=== PATIENT | female | born 1960 | race Caucasian/White ===

== ENCOUNTER 2020-05-28 09:15 | Outpatient (REF) | payer MEDICARE, MEDICAID, SELFPAY ==
[2020-05-30 20:51] LABS: TS Negative Control Passed; TS Panel A 0; TS Panel B 0; TS Positive Control Passed; TSpotTB Negative (SeeBelow)
== END 2020-05-28 09:16 | disposition home or self-care (01) ==
LOC: HO.HMGCLDS 09:15
PROVIDERS: PCP Internal Medicine; Visit Provider Internal Medicine
DX: Z11.1 Encounter for screening for respiratory tuberculosis (principal)
CPT/HCPCS: 86481

== ENCOUNTER 2020-08-23 07:00 | Outpatient (REF) | payer MEDICARE, MEDICAID, SELFPAY ==
[2020-08-23 11:20] LABS: Hematocrit 42.8 % (37-47); Hemoglobin 14.5 g/dl (12.0-16.0)
[2020-08-23 11:57] LABS: Alanine Aminotransferase 30 U/L (0-31); Albumin Level 4.5 g/dL (3.5-5.0); Alkaline Phosphatase 66 U/L (39-117); Anion Gap 13 (12-20); Aspartate Amino Transferase 13 U/L (5-31); Bilirubin Direct 0.2 mg/dL (0.0-0.5); Bilirubin Total 0.6 mg/dL (0.0-1.0); Blood Urea Nitrogen 13 mg/dL (9-16); Calcium 9.2 mg/dL (8.4-10.2); Carbon Dioxide 27 mmol/L (22-29); Chloride 104 mmol/L (96-108); Cholesterol 180 mg/dL; Estimated Glomerular Filt Rate > 60; Glucose Fasting 121 mg/dL (60-99); HDL Cholesterol 39 mg/dL; LDL Cholesterol Calculated 98 mg/dl; Potassium 4.2 mmol/L (3.3-5.1); Sodium 140 mmol/L (135-145); Total Protein 6.5 g/dL (6.5-8.0); Triglycerides 217 mg/dL
[2020-08-26 22:07] LABS: Vitamin D 25-OH, D2 <4 ng/mL; Vitamin D 25-OH, D3 27 ng/mL; Vitamin D 25-OH, Total 27 ng/mL (30-100)
== END 2020-08-23 07:01 | disposition home or self-care (01) ==
LOC: HO.HMGCLDS 07:00
PROVIDERS: PCP Internal Medicine; Visit Provider Internal Medicine
DX: Z00.01 Encounter for general adult medical examination with abnormal findings (principal); E55.9 Vitamin D deficiency, unspecified; G44.89 Other headache syndrome
CPT/HCPCS: 36415; 80048; 80061; 80076; 82306; 85014; 85018

== ENCOUNTER 2021-05-12 11:45 | Outpatient (REF) | payer OTHER, SELFPAY ==
--- NOTE | ~2021-05-12 | MM_ITS ---
EXAMINATION: MM SCREENING DIGITAL BREAST TOMOSYNTHESIS, BILATERAL CLINICAL INFORMATION: Screening. Asymptomatic. The lifetime risk of breast cancer based on the Tyrer-Cuzick Model is 10%. COMPARISON: Mammography: 03/26/2020, 10/03/2018, 08/12/2017 TECHNIQUE: Digital breast tomosynthesis is performed in both the craniocaudal and mediolateral oblique views along with computer-aided detection (CAD). Synthesized 2D images are generated from the tomosynthesis. FINDINGS: There are scattered areas of fibroglandular density (ACR BI-RADS breast composition Category b). There are no significant masses, abnormal calcifications, or other abnormalities. Parenchymal pattern is similar to prior studies. No developing density. The skin contours are smooth. No significant changes. MM/MM tomosynthesis screening BI IMPRESSION: No mammographic evidence of malignancy. ASSESSMENT: BI-RADS 1: Negative RECOMMENDATION: Routine annual mammography screening. This patient's information was entered into a reminder system with a target due date for their next mammogram.
== END 2021-05-12 11:46 | disposition home or self-care (01) ==
LOC: HO.MAMMO 11:45
PROVIDERS: Visit Provider Internal Medicine
DX: Z12.31 Encounter for screening mammogram for malignant neoplasm of breast (principal)
CPT/HCPCS: 77063; 77067

== ENCOUNTER 2021-07-11 09:39 | Outpatient (REF) | payer OTHER, SELFPAY ==
[2021-07-11 10:05] LABS: Binax Internal Control QC Valid; Binax Now Covid-19 Ag Negative (Negative); Binax Performed by: HO.BONILM
== END 2021-07-11 09:40 | disposition home or self-care (01) ==
LOC: HO.HMGCLDS 09:39
PROVIDERS: PCP Internal Medicine; Visit Provider Internal Medicine
DX: Z20.822 Contact with and (suspected) exposure to COVID-19 (principal); J06.9 Acute upper respiratory infection, unspecified
CPT/HCPCS: 36415

== ENCOUNTER 2021-08-22 09:26 | Outpatient (REF) | payer OTHER, SELFPAY ==
[2021-08-22 11:36] LABS: MANUAL DIFF FLAG NO
[2021-08-22 11:47] LABS: Basophils Percent Auto 0.4 % (0-2); Eosinophils Absolute Auto 0.1 X10*3/uL (0.0-0.4); Eosinophils Percent Auto 1.3 % (0-4); Hemoglobin 14.8 g/dl (12.0-16.0); Imm Gran Abs Auto 0.02 X10*3/uL (0.00-0.03); Imm Gran Pct Auto 0.3 % (0.0-0.4); Lymphocytes Absolute Auto 1.8 X10*3/uL (1.2-4.9); Mean Corpuscular HGB Conc 34.4 g/dl (31.0-35.0); Mean Corpuscular Hemoglobin 30.6 pg (27.0-33.0); Monocytes Absolute Auto 0.7 X10*3/uL (0.1-1.2); Monocytes Percent Auto 10.1 % (2-11); Neutrophils Absolute Auto 4.4 x10*3/uL (2.0-8.3); Neutrophils Percent Auto 61.9 % (45-73); Platelet Count 367 X10*3/uL (160-400); Red Blood Count 4.83 X10*6/uL (4.20-5.50)
[2021-08-22 12:13] LABS: Alanine Aminotransferase 34 U/L (0-31); Albumin Level 4.5 g/dL (3.5-5.0); Alkaline Phosphatase 79 U/L (39-117); Anion Gap 11 (12-20); Aspartate Amino Transferase 16 U/L (5-31); Bilirubin Total 0.3 mg/dL (0.0-1.0); Blood Urea Nitrogen 10 mg/dL (9-16); Calcium 9.7 mg/dL (8.4-10.2); Carbon Dioxide 27 mmol/L (22-29); Chloride 105 mmol/L (96-108); Estimated Glomerular Filt Rate > 60; Glucose Random 107 mg/dL (60-115); Potassium 4.4 mmol/L (3.3-5.1); Sodium 139 mmol/L (135-145); Total Protein 6.7 g/dL (6.5-8.0)
[2021-08-22 12:21] LABS: Estimated Average Glucose 120 mg/dL; Hemoglobin A1c % 5.8 %
[2021-08-23 17:06] LABS: LDL Cholesterol Direct 90 mg/dL (<100)
== END 2021-08-22 09:27 | disposition home or self-care (01) ==
LOC: HO.HMGCLDS 09:26
PROVIDERS: Visit Provider Internal Medicine
DX: Z00.01 Encounter for general adult medical examination with abnormal findings (principal); R73.01 Impaired fasting glucose; E66.9 Obesity, unspecified
CPT/HCPCS: 36415; 80053; 83036; 83721; 84443; 85025

== ENCOUNTER 2021-12-19 07:20 | Outpatient (REF) | payer OTHER, SELFPAY ==
--- NOTE | ~2021-12-19 | XR_ITS ---
EXAMINATION: XR SHOULDER, LEFT CLINICAL INFORMATION: Pain. COMPARISON: None TECHNIQUE: AP external rotation, Grashey, scapular Y, and axillary views of the left shoulder. FINDINGS: There is mild loss of before meals and glenohumeral joint space without periarticular spurring. No visible acute fracture or dislocation seen. The soft tissues are normal. XR/XR shoulder LT min 2V IMPRESSION: Mild degenerative changes left AC and glenohumeral joint. No visible acute fracture or dislocation seen. There is no lytic process.
== END 2021-12-19 07:21 | disposition home or self-care (01) ==
LOC: HO.HOSX 07:20
PROVIDERS: Visit Provider Physician Assistant
DX: M75.102 Unspecified rotator cuff tear or rupture of left shoulder, not specified as traumatic (principal)
CPT/HCPCS: 73030; 99202

== ENCOUNTER → 2022-01-08 13:55 | Outpatient (BNVA) | payer OTHER, SELFPAY | PROVIDERS: PCP Internal Medicine; Visit Provider Surgery Vascular Surgery | DX: I83.12 Varicose veins of left lower extremity with inflammation (principal) | CPT/HCPCS: 99202 ==

== ENCOUNTER 2022-03-12 12:40 | Outpatient (REF) | payer OTHER, SELFPAY ==
--- NOTE | ~2022-03-12 | US_ITS ---
EXAMINATION: US LOWER EXTREMITY VENOUS (REFLUX EXAM), BILATERAL CLINICAL INDICATION: This is a 62-year-old female with venous insufficiency and varicose veins. COMPARISON: None. TECHNIQUE: Color flow triplex imaging and compression Doppler was performed to evaluate both the deep and the superficial systems bilaterally. To evaluate the superficial system, the examination was performed in the upright position. Color-flow Doppler ultrasound and compression ultrasound were utilized. In addition, maneuvers were utilized to demonstrate reflux. FINDINGS: 1. DEEP VENOUS ULTRASOUND OF THE RIGHT LOWER EXTREMITY: Common Femoral Vein: Compressible, normal respiratory variation and augmented flow. Femoral vein: Compressible, normal color flow and augmentation. Popliteal Vein: Compressible, normal augmentation. Deep Reflux: There is no evidence of reflux in the deep system in either the common femoral vein or the popliteal vein. There is no evidence of a Loomis's cyst. 2. SUPERFICIAL ULTRASOUND WITH DOPPLER OF RIGHT LOWER EXTREMITY: GREAT SAPHENOUS VEIN: Saphenofemoral Junction: 0.9 cm. There is no reflux. Proximal thigh: 0.5 cm. The reflux time is 972 ms. Mid Thigh: 0.5 cm. There is no reflux at this level and below. Above Knee: 0.4 cm Below Knee: 0.3 cm Mid Calf: 0.3 cm Ankle: 0.3 cm GSV REFLUX: There is isolated reflux in the proximal thigh but not at the junction. DUPLICATED GREAT SAPHENOUS VEIN: There is a 0.3 cm duplicated lateral great saphenous vein without reflux. SMALL SAPHENOUS VEIN: Proximal: 0.3 cm Distal: 0.3 cm SSV REFLUX: No evidence of reflux. VEIN OF GIACOMINI: None Imaged. PERFORATORS: There are 0.4 cm distal calf perforators without reflux. VARICOSITIES: There are 0.3 cm varicose veins at the knee without reflux. 3. DEEP VENOUS ULTRASOUND OF THE LEFT LOWER EXTREMITY: Common Femoral Vein: Compressible, normal respiratory variation and augmented flow. Femoral Vein: Compressible, normal color flow and augmentation. Popliteal Vein: Compressible, normal augmentation. Deep Reflux: There is no evidence of reflux in the deep system in either the common femoral vein or the popliteal vein. There is duplication in the left deep venous system. There is no evidence of a Loomis's cyst. 4. SUPERFICIAL ULTRASOUND WITH DOPPLER OF LEFT LOWER EXTREMITY: GREAT SAPHENOUS VEIN: Saphenofemoral Junction: 1.1 cm. There is no reflux. Mid Thigh: 0.6 cm Above Knee: 0.4 cm Below Knee: 0.3 cm. There is no reflux at this level and above. Mid Calf: 0.3 cm. The reflux time is 1156 ms. Ankle: 0.3 cm. There is no reflux. GSV REFLUX: There is isolated reflux in the mid calf. DUPLICATED GREAT SAPHENOUS VEIN: None SMALL SAPHENOUS VEIN: Proximal: 0.2 cm Distal: 0.1 cm SSV REFLUX: No evidence of reflux. VEIN OF GIACOMINI: None Imaged. PERFORATORS: There are 0.2 cm mid calf perforators without reflux. VARICOSITIES: There are 0.3 cm distal thigh varicose veins without reflux. There are 0.3 cm proximal calf varicose veins without reflux. US/US venous duplex LE BI IMPRESSION: 1. There is a patent right great saphenous vein without reflux at the saphenofemoral junction. However, reflux is seen in the proximal thigh. No reflux is seen from the mid thigh down. 2. There is a patent right small saphenous vein without evidence of reflux. 3. There are 0.3 cm varicose veins at the right knee without reflux. 4. There is a patent left great saphenous vein with isolated reflux in the mid calf but not seen at the saphenofemoral junction. 5. There is a patent left small saphenous vein without evidence of reflux. 6. There are 0.3 cm varicose veins in the distal thigh and proximal calf on the left without reflux.
== END 2022-03-12 12:41 | disposition home or self-care (01) ==
LOC: HO.US 12:40
PROVIDERS: Visit Provider Surgery Vascular Surgery
DX: I83.12 Varicose veins of left lower extremity with inflammation (principal)
CPT/HCPCS: 93970

== ENCOUNTER → 2022-03-17 13:41 | Outpatient (BNVA) | payer OTHER, SELFPAY | PROVIDERS: PCP Internal Medicine; Visit Provider Surgery Vascular Surgery | DX: M79.89 Other specified soft tissue disorders (principal) | CPT/HCPCS: 99212 ==

== ENCOUNTER 2022-07-01 13:25 | Outpatient (REF) | payer OTHER, SELFPAY ==
--- NOTE | ~2022-07-01 | XR_ITS ---
EXAMINATION: XR LUMBOSACRAL SPINE CLINICAL INFORMATION: Radiculopathy COMPARISON: Previous x-ray January 2018 TECHNIQUE: Three views of the lumbosacral spine. FINDINGS: There is mild curvature of the lower lumbar spine to the left. Bone alignment is otherwise normal. No fracture or dislocation. Stable postsurgical changes at L3-L4. Degenerative spondylosis and degenerative disc disease at L1-L2 and L2-L3. Degenerative disc disease at L5-S1. Lower lumbar spine facet arthritis. XR/XR lumbar spine 2-3V IMPRESSION: Stable postsurgical changes at L3-L4. Mild scoliosis and degenerative changes.
== END 2022-07-01 13:26 | disposition home or self-care (01) ==
LOC: HO.HMGCX 13:25
PROVIDERS: PCP Internal Medicine; Visit Provider Nurse Practitioner Family
DX: M54.16 Radiculopathy, lumbar region (principal)
CPT/HCPCS: 72100

== ENCOUNTER → 2022-08-17 10:27 | Outpatient (BNVA) | payer OTHER, SELFPAY | PROVIDERS: PCP Internal Medicine; Visit Provider Internal Medicine | DX: M54.16 Radiculopathy, lumbar region (principal); M96.1 Postlaminectomy syndrome, not elsewhere classified; Z79.899 Other long term (current) drug therapy | CPT/HCPCS: 99202 ==

== ENCOUNTER 2022-09-10 15:08 | Outpatient (REF) | payer OTHER, SELFPAY ==
--- NOTE | ~2022-09-10 | MR_ITS ---
EXAMINATION: MR LUMBAR SPINE WITHOUT CONTRAST CLINICAL INFORMATION: Post laminectomy syndrome, not elsewhere classified. COMPARISON: None TECHNIQUE: MRI of the lumbar spine was obtained using routine sequences without contrast. FINDINGS: There are postoperative findings related to instrumented fusion at L3-L4 with interbody device in place and screws within the bilateral pedicles. There is mild multilevel disc height loss at the nonsurgical levels. Scattered endplate Schmorl's nodes are also noted. There is mild endplate edema inferiorly at L1 and at the opposing endplates of L5-S1. There is a mild degree of dextroscoliotic curvature. The extraspinal soft tissues are within normal limits. SPINAL LEVELS: L1-L2: Mild disc bulging. No spinal canal stenosis. Mild right neural foraminal stenosis. L2-L3: Disc bulging asymmetric to the left with ligamentum flavum infolding moderate facet arthropathy. Left and right foraminal protrusions resulting in mild to moderate bilateral neural foraminal stenosis with abutment of the extraforaminal right L2 nerve root. Mild spinal canal stenosis. L3-L4: Interbody fusion. No spinal canal or neural foraminal stenosis. L4-L5: Disc bulging with ligamentum flavum infolding, epidural lipomatosis, moderate facet arthropathy and small central protrusion resulting in moderate to severe spinal canal stenosis and bilateral subarticular stenosis compression of the traversing right more than left L5 nerve root. Moderate to severe bilateral neural foraminal stenosis with compression of both exiting L4 nerve roots. L5-S1: Disc bulging with moderate facet arthropathy. Far right lateral osteophytic ridging compresses the extraforaminal right L5 nerve root. Moderate right neural foraminal stenosis. No spinal canal stenosis. MR/MR lumbar spine wo con IMPRESSION: 1. Postoperative findings related to instrumented fusion at L3-L4. 2. At L2-L3 there is mild to moderate bilateral neural foraminal stenosis with abutment of the extraforaminal right L2 nerve root. 3. At L4-L5 there is moderate to severe spinal canal stenosis, bilateral subarticular stenosis, and moderate to severe bilateral neural foraminal stenosis with compression of both exiting L4 nerve roots. 4. At L5-S1 there is far right lateral osteophytic ridging causing compression of the extraforaminal right L5 nerve root.
== END 2022-09-10 15:09 | disposition home or self-care (01) ==
LOC: HO.MRI 15:08
PROVIDERS: PCP Internal Medicine; Visit Provider Internal Medicine
DX: M54.16 Radiculopathy, lumbar region (principal); M96.1 Postlaminectomy syndrome, not elsewhere classified
CPT/HCPCS: 72148

== ENCOUNTER 2023-05-15 12:10 | Outpatient (AMB) | payer OTHER, SELFPAY ==
--- NOTE | 2023-05-15 13:19 | MHC.OFFWIV ---
Intake Vital Signs 05/15/23 13:26 Height 5 ft 7 in Weight 217 lb BMI 34.0 BP 98/62 Blood Pressure Location Rt brachial Position Sitting Pulse 69 Pulse Source Pulse Oximeter Temp 98.1 F Temp Source Oral Pulse Oximetry (%) 98 Oxygen Delivery Method Room Air Intake Visit Reasons: Ep, congestion, cough (masked) Intake Note: Pt is here today c/o chest congestion and cough x1wk and H/A Patient Tobacco Use Status: Current someday Tobacco user Allergies animal dander Allergy (Unknown, Verified 05/15/23 13:27) SNEEZING, ITCHY No Known Drug Allergies [NO KNOWN DRUG ALLERGIES] Allergy (Unknown, Verified 05/15/23 13:) N/A SOIL Allergy (Unknown, Uncoded 05/15/23 13:) SNEEZING, ITCHY HPI HPI Comments History of Present Illness Details This is a 63-year-old female with a past medical history of seasonal allergies presenting for evaluation of sinus congestion, cough and a frontal headache that she has had for the past 1 week. 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 Patient denies having any fevers, chills, ear pain, sore throat or difficulty swallowing. Patient reports having poor sleep at night secondary to her cough. [facility] Surgical History History of back surgery History of section History of colonoscopy History of neck surgery History of ovarian cyst History of shoulder surgery History of surgery Family History Father Stomach cancer Mother Diabetes mellitus CVD (cardiovascular disease) Maternal Grandfather No problems noted. Maternal Grandmother Lung cancer Paternal Grandmother No problems noted. Paternal Grandfather No problems noted. Brother No problems noted. Brother No problems noted. Sister No problems noted. Son No problems noted. Son No problems noted. Son No problems noted. Daughter No problems noted. Social History Housing: House Alcohol intake: never Patient Tobacco Use Status: Current someday Tobacco user Years Smoked: 2 years e-Cigarette/Vaping Use: Never Used service: No Current occupational status: employed Cognitive needs: No Hearing needs: No Vision needs: No Review of Systems Const Denies chills, Reports fatigue and Denies fever(s) Eyes Reports no additional complaints ENT Reports no additional complaints and Reports sinus pressure Card Reports no additional complaints and Denies dyspnea Resp Reports cough, Denies dyspnea and Denies wheezing Skin/Breast Reports system reviewed and no additional complaints, except as documented Psych Reports no additional complaints Endo Reports fatigue Aller/Immun Reports no additional complaints and Denies wheezing Physical Exam Vital Signs: Last Vital Signs Temp 98.1 F 05/15/23 13:26 Pulse 69 05/15/23 13:26 BP 98/62 05/15/23 13:26 Pulse Ox 98 05/15/23 13:26 Oxygen Delivery Method Room Air 05/15/23 13:26 BMI result Body Mass Index 34.0 Patient is afebrile. Const General: cooperative, comfortable, no acute distress, well developed, alert and awake; No ill appearing Nutritional Appearance: overweight Orientation/consciousness: patient oriented x3 Limitations: no limitations HEENT Head: Yes normal to inspection and Yes normocephalic Ears: hearing grossly normal bilaterally, external ears normal, EAC's normal and TM abnormal bulging (no erythema) bilateral General nose exam: Normal external nose present Face and sinus: Yes normal facial exam and Yes sinuses nontender Mouth: Normal oral and palatal mucosa present Teeth and gingiva: dentition normal Throat: Yes postnasal drainage ( No erythema, edema or exudates of the posterior oropharynx) Eyes General: appearance normal, both eyes and all related structures Visual Mccormick: normal visual mccormick by confrontation Alignment and Position: alignment normal Periorbital: periorbital findings normal Eyelids: Yes eyelids normal Conjunctivae: conjunctivae normal Sclerae: sclerae normal EOM: EOMs intact bilaterally Neck Lymphatic: no lymphadenopathy noted Resp Effort & Inspection: normal respiratory effort, able to speak in complete sentences, no audible wheezes, Actively coughing, no respiratory distress and not tachypneic Auscultation: clear to auscultation bilaterally, no crackles, no rales, no rhonchi and no wheezes Cardio Rate: regular rate Rhythm: regular rhythm Skin General skin exam: no rashes or lesions noted Neuro General: patient oriented x3 Psych Appearance: grossly normal Mental Status: mental status grossly normal Insight: Good insight present (Psych) Judgement: Good judgement present (Psych) Assessment & Plan Assessment & Plan (1) URI (upper respiratory infection): Code(s): J06.9 - Acute upper respiratory infection, unspecified (2) Allergic rhinitis: Code(s): J30.9 - Allergic rhinitis, unspecified Plan: Patient will start Loratadine and Fluticasone nasal for ongoing management of her allergic rhinitis. Recommend follow-up with her PCP within 10 days if her symptoms persist. Medications: New desloratadine 5 mg PO DAILY 30 tabs 0RF fluticasone propionate 50 mcg/actuation administer into each nostril 1 spray intranasal DAILY 16 grams 1RF Coding Level of Care Code Est Pt Level 3 (49691) Diagnoses URI (upper respiratory infection) J06.9 Allergic rhinitis J30.9 Time Spent (min) 20
[2023-05-15 13:26] VITALS: BP 98/62; PULSE 69; TEMP 36.7; O2SAT 98; BMI 34.0
== END 2023-05-15 14:00 | disposition home or self-care (01) ==
PROVIDERS: PCP Internal Medicine; Visit Provider Physician Assistant
DX: J06.9 Acute upper respiratory infection, unspecified (principal); J30.9 Allergic rhinitis, unspecified
CPT/HCPCS: 99213

== ENCOUNTER 2023-08-03 13:01 | Outpatient (AMB) | payer OTHER, SELFPAY ==
[2023-08-03 13:02] VITALS: BP 134/80; PULSE 76; O2SAT 98; BMI 34.0
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
== END 2023-08-03 16:26 | disposition home or self-care (01) ==
PROVIDERS: PCP Internal Medicine; Visit Provider Internal Medicine
DX: S06.0X0A Concussion without loss of consciousness, initial encounter (principal); V89.2XXA Person injured in unspecified motor-vehicle accident, traffic, initial encounter; M54.50 Low back pain, unspecified; G44.89 Other headache syndrome; S09.90XA Unspecified injury of head, initial encounter; M54.2 Cervicalgia
CPT/HCPCS: 99214

== ENCOUNTER 2023-08-03 13:28 | Outpatient (AMB) | payer OTHER, SELFPAY ==
[2023-08-03 13:29] VITALS: BP 134/80; PULSE 76; O2SAT 98; BMI 34.0
--- NOTE | 2023-08-03 13:29 | A.OFFPC_ITS ---
Vital Signs 08/03/23 13:29 Height 5 ft 7 in Weight 217 lb BMI 34.0 BP 134/80 Blood Pressure Location Rt brachial Position Sitting Pulse 76 Pulse Source Pulse Oximeter Pulse Oximetry (%) 98 Oxygen Delivery Method Room Air Intake Visit Reasons: Allergies Allergies animal dander Allergy (Unknown, Verified 08/03/23 13:30) SNEEZING, ITCHY No Known Drug Allergies [NO KNOWN DRUG ALLERGIES] Allergy (Unknown, Verified 08/03/23 13:30) N/A SOIL Allergy (Unknown, Uncoded 05/15/23 13:27) SNEEZING, ITCHY Medication List - Last Reconciled 08/03/23 by Afshan Gutierrez MD cetirizine (Zyrtec) 10 mg PO DAILY 90 days desloratadine 5 mg PO DAILY diclofenac sodium 1% (Voltaren Arthritis Pain) 2 grams topical QID fluticasone propionate 50 mcg/actuation 1 spray intranasal DAILY Tobacco use date assessed: 08/03/23 Dental Screening Dental Screen Date: 08/03/23 Did you have a dental visit in the last 12 months?: Yes Did you have a dental problem in the last 6 months where you did not have access to dental care?: No Was dental information given to patient?: Patient has dentist HPI Allergies HPI Details Patient is 63-year-old female Patient is having recurrent sinus infections secondary to untreated allergies She is supposed to be on long-acting antihistamine, patient says that she ran out and stopped taking it. At this point her sinuses are fine but she continued to have itching in her nose and sneezing I have refilled her long-acting antihistamine for the whole year. [facility] Surgical History History of ovarian cyst History of colonoscopy History of section History of shoulder surgery History of surgery History of neck surgery History of back surgery Family History Father Stomach cancer Mother Diabetes mellitus CVD (cardiovascular disease) Maternal Grandfather No problems noted. Maternal Grandmother Lung cancer Paternal Grandmother No problems noted. Paternal Grandfather No problems noted. Brother No problems noted. Brother No problems noted. Sister No problems noted. Son No problems noted. Son No problems noted. Son No problems noted. Daughter No problems noted. Social History Housing: House Alcohol intake: never Patient Tobacco Use Status: Current someday Tobacco user Tobacco use type: Cigarette Years Smoked: 2 years e-Cigarette/Vaping Use: Never Used service: No Current occupational status: employed Cognitive needs: No Hearing needs: No Vision needs: No Questionnaire Thrive Questionnaire Date Thrive assessed: 08/14/22 GRZEGORZ-7 AMB Questionnaire GRZEGORZ-7 Date GRZEGORZ - 7 assessed: 08/14/22 Source: Developed by Drs. Damian Wilkinson, Jana Crespo, Barber Ramirez and colleagues, with an educational kameron from [employer]. Review of Systems Const Denies chills and Denies fever(s) ENT Denies epistaxis Card Denies chest pain Resp Denies chest congestion, Denies cough and Denies hemoptysis GI Denies diarrhea and Denies nausea Skin/Breast Denies rash Neuro Reports no additional complaints Psych Reports no additional complaints Endo Reports no additional complaints Physical exam (Primary Care) Vital Signs: Last Vital Signs Pulse 76 08/03/23 13:29 BP 134/80 08/03/23 13:29 Pulse Ox 98 08/03/23 13:29 Oxygen Delivery Method Room Air 08/03/23 13:29 BMI result Body Mass Index 34.0 Tobacco/Smoking Status: Tobacco use Status Tobacco use date assessed 08/03/23 08/03/23 13:30 Patient Tobacco Use Status Current someday Tobacco 08/03/23 13:30 Tobacco use type Cigarette 08/03/23 13:30 e-Cigarette/Vaping Use Never Used 08/03/23 13:30 Thrive Assessment: Date of Thrive Assessment Date Thrive assessed 08/14/22 08/03/23 13:30 Const General: cooperative, comfortable and no acute distress Orientation/consciousness: patient oriented x3 HENMT Head: Yes normocephalic Eyes General: appearance normal, both eyes and all related structures Resp Effort & Inspection: normal respiratory effort, no cough and no stridor Cardio Rhythm: regular rhythm Heart sounds: S1 normal heart sound present and S2 normal heart sound present Skin General skin exam: turgor normal Neuro General: patient oriented x3, tone normal and moves all extremities Extrem Right lower extremity: no edema Left lower extremity: no edema Assessment and Plan Assessment & Plan (1) Allergic rhinitis: Code(s): J30.9 - Allergic rhinitis, unspecified Qualifiers: Allergic rhinitis trigger: pollen Allergic rhinitis seasonality: non- seasonal Qualified Code(s): J30.1 - Allergic rhinitis due to pollen (2) Environmental allergies: Code(s): Z91.09 - Other allergy status, other than to drugs and biological substances Plan Patient is 63-year-old female Patient is having recurrent sinus infections secondary to untreated allergies She is supposed to be on long-acting antihistamine, patient says that she ran out and stopped taking it. At this point her sinuses are fine but she continued to have itching in her nose and sneezing I have refilled her long-acting antihistamine for the whole year. Medications: Refilled cetirizine (Zyrtec) 10 mg PO DAILY 90 tabs 3RF 90 days Coding Level of Care Code Est Pt Level 3 (01028) Diagnoses Non-seasonal allergic rhinitis due to pollen J30.1 Allergic rhinitis trigger: pollen Allergic rhinitis seasonality: non-seasonal Environmental allergies Z91.09
== END 2023-08-03 16:27 | disposition home or self-care (01) ==
LOC: HO.HMGC 13:28
PROVIDERS: PCP Internal Medicine; Visit Provider Internal Medicine
DX: J30.1 Allergic rhinitis due to pollen (principal); Z91.09 Other allergy status, other than to drugs and biological substances
CPT/HCPCS: 99213

== ENCOUNTER 2023-09-21 12:18 | Outpatient (AMB) | payer OTHER, SELFPAY ==
[2023-09-21 12:20] VITALS: BP 134/78; PULSE 84; O2SAT 96; BMI 34.3
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
== END 2023-09-21 14:15 | disposition home or self-care (01) ==
PROVIDERS: PCP Internal Medicine; Visit Provider Internal Medicine
DX: M54.50 Low back pain, unspecified (principal); V89.2XXD Person injured in unspecified motor-vehicle accident, traffic, subsequent encounter
CPT/HCPCS: 99213

== ENCOUNTER 2023-12-24 14:20 | Outpatient (AMB) | payer OTHER, SELFPAY ==
[2023-12-24 14:41] VITALS: BP 132/80; PULSE 95; O2SAT 87; BMI 33.9
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
== END 2023-12-24 16:28 | disposition home or self-care (01) ==
PROVIDERS: PCP Internal Medicine; Visit Provider Internal Medicine
DX: M54.50 Low back pain, unspecified (principal); M54.16 Radiculopathy, lumbar region; R20.2 Paresthesia of skin; Z04.3 Encounter for examination and observation following other accident; V89.2XXD Person injured in unspecified motor-vehicle accident, traffic, subsequent encounter
CPT/HCPCS: 99214

== ENCOUNTER 2023-12-24 15:08 | Outpatient (AMB) | payer OTHER, SELFPAY ==
--- NOTE | 2023-12-24 15:08 | MHC.PC.OV ---
Intake Visit Reasons: Follow Up Allergies animal dander Allergy (Unknown, Verified 12/24/23 14:41) SNEEZING, ITCHY No Known Drug Allergies [NO KNOWN DRUG ALLERGIES] Allergy (Unknown, Verified 12/24/23 14:41) N/A SOIL Allergy (Unknown, Uncoded 05/15/23 13:27) SNEEZING, ITCHY Medication List - Last Reconciled 12/24/23 by Afshan Gutierrez MD cetirizine (Zyrtec) 10 mg PO DAILY 90 days desloratadine 5 mg PO DAILY diclofenac sodium 1% (Voltaren Arthritis Pain) 2 grams topical QID fluticasone propionate 50 mcg/actuation 1 spray intranasal DAILY tizanidine 2 mg PO BID PRN 15 days Tobacco use date assessed: 12/24/23 Dental Screening Dental Screen Date: 12/24/23 HPI Follow Up HPI Details Patient is 63-year-old female came in today to talk about swelling of her ankle Patient says that during the summer months , her ankle swells when she is standing or sitting for prolonged periods of time In the past frusemide has helped her. Patient is requesting a refill on this medication which I have sent for her Vital signs: Height is 5 ft 7 in Weight 216 lb 4 oz BMI 33.9 Blood pressure 132/80 Pulse 95 regular [facility] Surgical History History of ovarian cyst History of colonoscopy History of section History of shoulder surgery History of surgery History of neck surgery History of back surgery Family History Father Stomach cancer Mother Diabetes mellitus CVD (cardiovascular disease) Maternal Grandfather No problems noted. Maternal Grandmother Lung cancer Paternal Grandmother No problems noted. Paternal Grandfather No problems noted. Brother No problems noted. Brother No problems noted. Sister No problems noted. Son No problems noted. Son No problems noted. Son No problems noted. Daughter No problems noted. Social History Housing: House Alcohol intake: never Patient Tobacco Use Status: Current someday Tobacco user Tobacco use type: Cigarette Years Smoked: 2 years e-Cigarette/Vaping Use: Never Used service: No Current occupational status: employed Cognitive needs: No Hearing needs: No Vision needs: No Questionnaire Thrive Questionnaire Date Thrive assessed: 08/14/22 GRZEGORZ-7 AMB Questionnaire GRZEGORZ-7 Date GRZEGORZ - 7 assessed: 08/14/22 Source: Developed by Drs. Damian Wilkinson, Jana Crespo, Barber Ramirez and colleagues, with an educational kameron from [employer]. Review of Systems Const All systems reviewed & are unremarkable except as noted in HPI and below Physical exam (Primary Care) Tobacco/Smoking Status: Tobacco use Status Tobacco use date assessed 12/24/23 12/24/23 15:08 Patient Tobacco Use Status Current someday Tobacco 12/24/23 15:08 Tobacco use type Cigarette 12/24/23 15:08 e-Cigarette/Vaping Use Never Used 12/24/23 15:08 Thrive Assessment: Date of Thrive Assessment Date Thrive assessed 08/14/22 12/24/23 15:08 Const General: no acute distress Orientation/consciousness: patient oriented x3 Eyes General: appearance normal, both eyes and all related structures Resp Effort & Inspection: normal respiratory effort and able to speak in complete sentences Auscultation: clear to auscultation bilaterally Neuro General: patient oriented x3 Extrem Other: 1+ pitting edema both ankles Psych Mental Status: mental status grossly normal Assessment and Plan Assessment & Plan (1) Ankle edema, bilateral: Code(s): M25.471 - Effusion, right ankle; M25.472 - Effusion, left ankle Plan Patient is 63-year-old female came in today to talk about swelling of her ankle Patient says that during the summer months , her ankle swells when she is standing or sitting for prolonged periods of time In the past frusemide has helped her. Patient is requesting a refill on this medication which I have sent for her Medications: New furosemide 20 mg PO QAM PRN 30 tabs 0RF edema Coding Level of Care Code Est Pt Level 3 (34585) Diagnoses Ankle edema, bilateral M25.471; M25.472
== END 2023-12-24 16:28 | disposition home or self-care (01) ==
LOC: HO.HMGC 15:08
PROVIDERS: PCP Internal Medicine; Visit Provider Internal Medicine
DX: M25.471 Effusion, right ankle (principal); M25.472 Effusion, left ankle
CPT/HCPCS: 99213

== ENCOUNTER 2025-02-09 15:40 | Outpatient (AMB) | payer OTHER, SELFPAY ==
--- NOTE | 2025-02-09 15:41 | A.OFFPC_ITS ---
Vital Signs 02/09/25 15:42 Height 5 ft 7 in Weight 220 lb BMI 34.5 BP 110/70 Blood Pressure Location Rt brachial Position Sitting Respiration 18 Pulse 81 Pulse Source Pulse Oximeter Temp 98.5 F Temp Source Oral Pulse Oximetry (%) 96 Oxygen Delivery Method Room Air Intake Visit Reasons: annual pe Allergies animal dander Allergy (Unknown, Verified 02/09/25 15:43) SNEEZING, ITCHY No Known Drug Allergies (NO KNOWN DRUG ALLERGIES) Allergy (Unknown, Verified 02/09/25 15:43) N/A SOIL Allergy (Unknown, Uncoded 02/09/25 15:43) SNEEZING, ITCHY Medication List - Last Reconciled 02/09/25 by Afshan Gutierrez MD cetirizine (Zyrtec) 10 mg PO DAILY 90 days desloratadine 5 mg PO DAILY diclofenac sodium 1% (Voltaren Arthritis Pain) 2 grams topical QID fluticasone propionate 50 mcg/actuation 1 spray intranasal DAILY furosemide 20 mg PO QAM PRN tizanidine 2 mg PO ONCE PRN 30 days Tobacco use date assessed: 02/09/25 Dental Screening Dental Screen Date: 12/24/23 HPI annual pe HPI Details Physical exam appointment The patient is a 65-year-old female presenting with respiratory symptoms and a dermatological concern. Allergic Rhinitis: - Reports taking Zyrtec and Flonase for allergy symptoms. Bronchitis: - Recent symptoms include coughing up ye llow mucus. - Previously received prednisone and an inhaler at a walk-in clinic. But did not improve Sinusitis: - Reports sinus headache and nose stuffi ness. - Continues to experience cough and mucu s production despite finishing a course of prednisone through walk-in clinic Tinea Intertrigo: - Irritation under the breasts noted, tr eated with mfvj-avv-dcfpnva creams, with recurrence. - Symptoms described as a burning sensat ion. Fluid retention lower extremity chronic: - Uses a water pill intermittently for f luid management, with symptoms resolving during the day but returning at night. 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 I do not have the report patient says that it was done in [facility] - due for Colon cancer screening with pl anned use of Cologuard. - Annual Pap smear and gynecology visit recommended. Patient goes to [facility] - Dr. Lopez at [facility] for gynecology care. 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 - Complete a Cologuard test. - Book an appointment for a Pap smear an d gynecology visit. - Use prescribed cream at night and powd er during the day for skin irritation. Nystatin - Visit the clinic for a blood test, fas ting, without breakfast or non-black coffee. - Ultrasound to be arranged upon follow- up for leg swelling. Follow-up six-month and physical exam 1 year we will book a telephone visit after the ultrasound Review of Systems - General: No fever no chills - Neurological: No headaches no dizzin ess - Ear nose throat: no hearing difficulty no ear pain - Cardiovascular: No syncope, no chest pain, no palpitations - Gastrointestinal: No nausea vomiting or diarrhea - Endocrine: No polyuria polydipsia no heat intolerance - Genitourinary: No dysuria - Skin: No new complaints Physical Exam General: Cooperative, healthy appearing, comfortable, no acute distress Orientation: Patient oriented x3 Head: Normal to inspection Ears: Within normal limit visually Nose: Sinus headache and stuffiness present Face and sinus: Normal facial exam Eyes: Appearance normal, extraocular movement intact pupils reactive Neck: Normal visual inspection and supple Respiratory: Normal respiratory effort and able to speak in complete sentences. Clear to auscultation, no stridor Cardiovascular: S1 and S2 RRR Breast exam benign GI: Normal to inspection. Soft to palpation and nontender. No constipation, no diarrhea Skin: Turgor normal, no acute findings. Irritation under the breast, likely fungal Neuro: Patient oriented x3, motor sensory intact, balance intact, tandem pass Extremities: 1+ swelling both ankles up to palacios PFSH Surgical History History of ovarian cyst History of colonoscopy History of section History of shoulder surgery History of surgery History of neck surgery History of back surgery Family History Father Stomach cancer Mother Diabetes mellitus CVD (cardiovascular disease) Maternal Grandfather No problems noted. Maternal Grandmother Lung cancer Paternal Grandmother No problems noted. Paternal Grandfather No problems noted. Brother No problems noted. Brother No problems noted. Sister No problems noted. Son No problems noted. Son No problems noted. Son No problems noted. Daughter No problems noted. Social History Housing: House Alcohol intake: never Patient Tobacco Use Status: Current someday Tobacco user Tobacco use type: Cigarette Years Smoked: 2 years e-Cigarette/Vaping Use: Never Used service: No Current occupational status: employed Cognitive needs: No Hearing needs: No Vision needs: No Questionnaire PHQ-9 Over the last 2 weeks, how often have you been bothered by any of the following problems? 1. Little interest or pleasure in doing things: not at all 2. Feeling down, depressed, or hopeless: not at all 3. Trouble falling or staying asleep, or sleeping too much: several days 4. Feeling tired or having little energy: not at all 5. Poor appetite or overeating: not at all 6. Feeling bad about yourself - or that you are a failure or have let yourself or your family down: not at all 7. Trouble concentrating on things, such as reading the newspaper or watching television: not at all 8. Moving or speaking so slowly that other people could have noticed. Or the opposite - being so fidgety or restless that you have been moving around a lot more than usual: not at all 9. Thoughts that you would be better off or of hurting yourself in some way: not at all Total score: 1 Depression Screening Interpretation: Negative Depression Screening Done: Yes 32072 - PHQ-9 Billing: Yes Source: Developed by Drs. Damian Wilkinson, Jana Crespo, Barber Ramirez and colleagues, with an educational kameron from [employer]. Thrive Questionnaire Date Thrive assessed: 02/09/25 I am a: Patient What is your living situation today?: I have a steady place to live Within the past 12 months, did the food you bought not last and you didn't have the money to get more?: Never true Within the past 12 months, did you worry whether your food would run out before you got money to buy more?: Never true Do you have trouble paying for medicines?: No Do you have trouble getting transportation to medical appointments?: No Do you have trouble paying your heating and electricity bill?: No Do you have trouble taking care of your child, family member or friend?: No Do you have trouble with day-to-day activities such as bathing, preparing meals, shopping, managing finances, etc.?: No Are you currently unemployed and looking for a job?: No Are you interested in more education?: No Please select the resources that you would like help with: None Currently or been in a relationship where the following occur: No concerns reported THRIVE Score: 0 AUDIT C Alcohol Use Questionnaire (AUDIT-C) 1. How often do you have a drink containing alcohol?: Monthly or less 2. How many drinks containing alcohol do you have on a typical day when you are drinking?: 3 or 4 3. How often do you have six or more drinks on one occasion?: Less than monthly Total Score: 3 GRZEGORZ-7 AMB Questionnaire GRZEGORZ-7 Date GRZEGORZ - 7 assessed: 02/09/25 Feeling nervous, anxious, or on edge: 0 = Not at all Not being able to stop or control worryin = Not at all Worrying too much about different things: 0 = Not at all Trouble relaxin = Not at all Being so restless that it is hard to sit still: 0 = Not at all Becoming easily annoyed or irritable: 0 = Not at all Feeling afraid as if something awful might happen: 0 = Not at all Total GRZEGORZ-7 score (0-4 normal; 5-9 mild; 10-14 moderate; 15-21 severe): 0 Source: Developed by Drs. Damian Wilkinson, Jana Crespo, Barber Ramirez and colleagues, with an educational kameron from [employer]. Physical exam (Primary Care) Vital Signs: Last Vital Signs Temp 98.5 F 02/09/25 15:42 Pulse 81 02/09/25 15:42 Resp 18 02/09/25 15:42 BP 110/70 02/09/25 15:42 Pulse Ox 96 02/09/25 15:42 Oxygen Delivery Method Room Air 02/09/25 15:42 BMI result Body Mass Index 34.5 Tobacco/Smoking Status: Tobacco use Status Tobacco use date assessed 02/09/25 02/09/25 15:46 Patient Tobacco Use Status Current someday Tobacco 02/09/25 15:46 Tobacco use type Cigarette 02/09/25 15:46 e-Cigarette/Vaping Use Never Used 02/09/25 15:46 PHQ-9: PHQ-9 Score PHQ-9: Total score 1 02/09/25 15:46 Depression Screening Interpretation: Negative Thrive Assessment: Date of Thrive Assessment Date Thrive assessed 02/09/25 02/09/25 15:46 Currently or been in a relationship where the following occur: No concerns reported Coding Level of Care Code Est Pt Level 3 (40221) Est Pt Prev Care 40-64y(03940) Diagnoses Encounter for general adult medical examination with abnormal findings Z00.01 Swelling of both lower extremities M79.89 Tinea corporis B35.4 Acute non-recurrent maxillary sinusitis J01.00 Sinusitis location: maxillary Recurrence: non-recurrent Environmental allergies Z91.09 Impaired fasting blood sugar R73.01 Obesity (BMI 30-39.9) E66.9 Vitamin D deficiency E55.9 Non-seasonal allergic rhinitis due to pollen J30.1 Allergic rhinitis seasonality: non-seasonal Allergic rhinitis trigger: pollen Additional Codes PHQ-9 - 71059 - PHQ-9 Billing: Yes ([id number]) Assessment & Plan Assessment & Plan (1) Encounter for general adult medical examination with abnormal findings: Code(s): Z00.01 - Encounter for general adult medical examination with abnormal findings Category: Medical (2) Swelling of both lower extremities: Code(s): M79.89 - Other specified soft tissue disorders Category: Medical (3) Tinea corporis: Code(s): B35.4 - Tinea corporis Category: Medical (4) Acute sinusitis: Code(s): J01.90 - Acute sinusitis, unspecified Category: Medical Qualifiers: Sinusitis location: maxillary Recurrence: non-recurrent Qualified Code(s): J01.00 - Acute maxillary sinusitis, unspecified (5) Environmental allergies: Code(s): Z91.09 - Other allergy status, other than to drugs and biological substances Category: Medical (6) Impaired fasting blood sugar: Code(s): R73.01 - Impaired fasting glucose Category: Medical (7) Obesity (BMI 30-39.9): Code(s): E66.9 - Obesity, unspecified Category: Medical (8) Vitamin D deficiency: Code(s): E55.9 - Vitamin D deficiency, unspecified Category: Medical (9) Allergic rhinitis: Code(s): J30.9 - Allergic rhinitis, unspecified Category: Medical Qualifiers: Allergic rhinitis seasonality: non-seasonal Allergic rhinitis trigger: pollen Qualified Code(s): J30.1 - Allergic rhinitis due to pollen Plan Physical exam appointment The patient is a 65-year-old female presenting with respiratory symptoms and a dermatological concern. Allergic Rhinitis: - Reports taking Zyrtec and Flonase for allergy symptoms. Bronchitis: - Recent symptoms include coughing up yellow mucus. - Previously received prednisone and an inhaler at a walk-in clinic. But did not improve Sinusitis: - Reports sinus headache and nose stuffiness. - Continues to experience cough and mucus production despite finishing a course of prednisone through walk-in clinic Tinea Intertrigo: - Irritation under the breasts noted, treated with xjqn-ign-agimvix creams, with recurrence. - Symptoms described as a burning sensation. Fluid retention lower extremity chronic: - Uses a water pill intermittently for fluid management, with symptoms resolving during the day but returning at night. 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 I do not have the report patient says that it was done in [facility] - due for Colon cancer screening with planned use of Cologuard. - Annual Pap smear and gynecology visit recommended. Patient goes to [facility] - Dr. Lopez at [facility] for gynecology care. 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 - Complete a Cologuard test. - Book an appointment for a Pap smear and gynecology visit. - Use prescribed cream at night and powder during the day for skin irritation. Nystatin - Visit the clinic for a blood test, fasting, without breakfast or non-black coffee. - Ultrasound to be arranged upon follow-up for leg swelling. Follow-up six-month and physical exam 1 year we will book a telephone visit after the ultrasound Orders: Orders Lipid Panel Today E55.9 - Vitamin D deficiency, unspecified, E66.9 - Obesity, unspecified, J30.1 - Allergic rhinitis due to pollen, R73.01 - Impaired fasting glucose, Z00.01 - Encounter for general adult medical examination with abnormal findings, Z91.09 - Other allergy status, other than to drugs and biological substances Vitamin D 25-OH (D2 and D3) Today E55.9 - Vitamin D deficiency, unspecified, E66.9 - Obesity, unspecified, J30.1 - Allergic rhinitis due to pollen, R73.01 - Impaired fasting glucose, Z00.01 - Encounter for general adult medical examination with abnormal findings, Z91.09 - Other allergy status, other than to drugs and biological substances Complete Blood Count Auto Diff Today E55.9 - Vitamin D deficiency, unspecified, E66.9 - Obesity, unspecified, J30.1 - Allergic rhinitis due to pollen, R73.01 - Impaired fasting glucose, Z00.01 - Encounter for general adult medical examination with abnormal findings, Z91.09 - Other allergy status, other than to drugs and biological substances Comprehensive Met. Panel Today E55.9 - Vitamin D deficiency, unspecified, E66.9 - Obesity, unspecified, J30.1 - Allergic rhinitis due to pollen, R73.01 - Impaired fasting glucose, Z00.01 - Encounter for general adult medical examination with abnormal findings, Z91.09 - Other allergy status, other than to drugs and biological substances TSH reflex Free T4 Today E55.9 - Vitamin D deficiency, unspecified, E66.9 - Obesity, unspecified, J30.1 - Allergic rhinitis due to pollen, R73.01 - Impaired fasting glucose, Z00.01 - Encounter for general adult medical examination with abnormal findings, Z91.09 - Other allergy status, other than to drugs and biological substances US venous duplex LE BI Today M79.89 - Other specified soft tissue disorders Referrals Cologuard Test Z12.11 - Encounter for screening for malignant neoplasm of colon, Z12.12 - Encounter for screening for malignant neoplasm of rectum Medications: New azithromycin Take 2 tablets today then 1 daily 250 mg PO ONCE 6 tabs 0RF 5 days J06.9 - Acute upper respiratory infection, unspecified nystatin 1 appl topical DAILY 30 grams 1RF 30 days
[2025-02-09 15:42] VITALS: BP 110/70; PULSE 81; RESP 18; TEMP 36.9; O2SAT 96; BMI 34.5
--- OUTSIDE RECORDS SUMMARY | 2025-02-09 15:43 | XMS_ITS | Clinical Summary ---
Author Organization [facility] Address [address] [place] [address] Care Team Providers Care Puddler Helper Name Role Phone Unavailable Primary Care Provider Unavailabl e Surgical History Surgery Date Site/Laterality Comments BACK SURGERY 2003 PROCEDURE: HISTORICAL BACK SURGERY; COMMENT: disc fusion L3-4 NECK SURGERY PROCEDURE: HISTORICAL NECK SURGERY; COMMENT: disc removal. CHOLECYSTECTOMY PROCEDURE: [place] LAPAROSCOPY SURG CHOLECYSTECTOMY Medical History Medical History Date Comments Arthritis DX:Arthritis Degenerative disc disease, lumbar DX:Degenerative disc disease, lumbar Osteoarthritis of cervical spine DX:Osteoarthritis of cervical spine Family History Medical History Relation Name Comments Coronary artery disease Mother Relation Name Status Comments Maternal Grandfather Maternal Grandmother Mother (Age 50) Paternal Grandfather Paternal Grandmother Social History Tobacco Use Types Packs/Day Years Used Date Smoking Tobacco: Every Day Alcohol Use Standard Drinks/Week Comments Yes 0 (1 standard drink = 0.6 oz pur e alcohol) Comments Unknown Sex and Gender Information Value Date Recorded Sex Assigned at Not on file Legal Sex Female 4:02 PM EST Gender Identity Not on file Sexual Orientation Not on file Obstetrics History Plan of Treatment Health Maintenance Due Date Last Done Comments Breast Cancer Screening 1962 DTaP,Tdap,and Td Vaccines (1 - Tdap) 1981 Pneumococcal Vaccine: 50+ Ye ars (1 of 2 - PCV) 1981 Cervical Cancer Screening: P ap Smear 1983 Zoster Vaccines (1 of 2) 01/20/2012 Colorectal Cancer Screening: Colonoscopy 06/03/2022 HIV Screening 06/03/2022 Hepatitis C Screening 06/03/2022 Social Influencers of Health Screening 06/03/2022 COVID-19 Vaccine (1 - 2023-2 5 season) 2024 Depression Screening 07/05/2024 Influenza Vaccine (#1) 2025 05/20/2011 RSV Immunization Adult Patie nts (1 - 1-dose 75+ series) 2037 HIB Vaccines Aged Out No longer eligi ble based on patient's age to complete this topic HPV Vaccines Aged Out No longer eligi ble based on patient's age to complete this topic Hepatitis A Vaccines Aged Out No long er eligible based on patient's age to complete this topic Hepatitis B Vaccines Aged Out No long er eligible based on patient's age to complete this topic IPV Vaccines Aged Out No longer eligi ble based on patient's age to complete this topic MMR Vaccines Aged Out No longer eligi ble based on patient's age to complete this topic Meningococcal ACWY Vaccine Aged Out N o longer eligible based on patient's age to complete this topic Meningococcal B Vaccine Aged Out No l onger eligible based on patient's age to complete this topic RSV Immunization Patients Un yk 20 months Aged Out No longer eligible b ased on patient's age to complete this topic Varicella Vaccines Aged Out No longer eligible based on patient's age to complete this topic
== END 2025-02-09 16:03 | disposition home or self-care (01) ==
PROVIDERS: PCP Internal Medicine; Visit Provider Internal Medicine
DX: Z00.01 Encounter for general adult medical examination with abnormal findings (principal); M79.89 Other specified soft tissue disorders; E66.9 Obesity, unspecified; Z68.34 Body mass index [BMI] 34.0-34.9, adult; B35.4 Tinea corporis; J01.00 Acute maxillary sinusitis, unspecified; Z91.09 Other allergy status, other than to drugs and biological substances; R73.01 Impaired fasting glucose; E55.9 Vitamin D deficiency, unspecified; J30.1 Allergic rhinitis due to pollen

== ENCOUNTER → 2025-02-09 15:40 | Outpatient (BNVA) | payer OTHER, SELFPAY | PROVIDERS: PCP Internal Medicine; Visit Provider Internal Medicine | DX: Z00.01 Encounter for general adult medical examination with abnormal findings (principal); M79.89 Other specified soft tissue disorders; J30.9 Allergic rhinitis, unspecified; J40 Bronchitis, not specified as acute or chronic; B35.4 Tinea corporis; J01.00 Acute maxillary sinusitis, unspecified; R73.01 Impaired fasting glucose; E66.9 Obesity, unspecified; E55.9 Vitamin D deficiency, unspecified; J30.1 Allergic rhinitis due to pollen; Z91.09 Other allergy status, other than to drugs and biological substances; Z68.34 Body mass index [BMI] 34.0-34.9, adult | CPT/HCPCS: 96127; 99212; 99396 ==

== ENCOUNTER 2025-02-10 09:29 | Outpatient (REF) | payer OTHER, SELFPAY ==
[2025-02-10 11:48] LABS: MANUAL DIFF FLAG NO
[2025-02-10 12:00] LABS: Hematocrit 41.7 % (37.0-47.0); Hemoglobin 14.7 g/dl (12.0-16.0); Imm Gran Abs Auto 0.07 X10*3/uL (0.00-0.03); Imm Gran Pct Auto 0.6 % (0.0-0.4); Lymphocytes Absolute Auto 3.5 X10*3/uL (1.2-4.9); Mean Corpuscular HGB Conc 35.3 g/dl (31.0-35.0); Mean Corpuscular Hemoglobin 31.3 pg (27.0-33.0); Mean Corpuscular Volume 88.9 fL (80.0-98.0); NRBC Abs Auto 0.000 X10*3/uL (0.0-0.012); NRBC Pct Auto 0.0 /100WBC (0.0-0.2); Platelet Count 346 X10*3/uL (160-400); Red Blood Count 4.69 X10*6/uL (4.20-5.50); White Blood Count 11.3 X10*3/uL (4.8-10.8)
[2025-02-10 12:45] LABS: Alanine Aminotransferase 41 U/L (0-31); Albumin Level 4.6 g/dL (3.5-5.0); Alkaline Phosphatase 77 U/L (39-117); Anion Gap 14 (12-20); Aspartate Amino Transferase 21 U/L (5-31); Blood Urea Nitrogen 12 mg/dL (9-16); Calcium 9.0 mg/dL (8.4-10.2); Carbon Dioxide 28 mmol/L (22-29); Chloride 103 mmol/L (96-108); Cholesterol 156 mg/dL (<200); Estimated Glomerular Filt Rate > 60; HDL Cholesterol 41 mg/dL (>40); Potassium 3.5 mmol/L (3.3-5.1); Sodium 141 mmol/L (135-145); Total Protein 6.4 g/dL (6.5-8.0); Triglycerides 236 mg/dL (<150)
[2025-02-10 13:50] LABS: Free T4 (Free Thyroxine) 1.08 ng/dL (0.71-1.85)
[2025-02-19 15:48] LABS: Vitamin D 25-OH, D2 <4 ng/mL; Vitamin D 25-OH, D3 33 ng/mL; Vitamin D 25-OH, Total 33 ng/mL (30-100)
== END 2025-02-10 09:30 | disposition home or self-care (01) ==
LOC: HO.HMGCLDS 09:29
PROVIDERS: PCP Internal Medicine; Visit Provider Internal Medicine
DX: Z00.01 Encounter for general adult medical examination with abnormal findings (principal); J30.1 Allergic rhinitis due to pollen; R73.01 Impaired fasting glucose; E66.9 Obesity, unspecified; E55.9 Vitamin D deficiency, unspecified
CPT/HCPCS: 36415; 80053; 80061; 82306; 84439; 84443; 85025

== ENCOUNTER 2025-03-12 13:29 | Outpatient (REF) | payer OTHER, SELFPAY ==
--- OUTSIDE RECORDS SUMMARY | 2025-03-12 15:45 | XMS_ITS | Clinical Summary ---
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 CHOLECYSTECTOMY PROCEDURE: [place] LAPAROSCOPY SURG CHOLECYSTECTOMY Medical History Medical History [...] 06/03/2022 Social Influencers of Health Screening 06/03/2022 Depression Screening 07/05/2024 COVID-19 Vaccine (1 - 2023-2 5 season) 2025 Influenza Vaccine (#1) 2025 05/20/2011 RSV Immunization [...] complete this topic RSV Immunization Patients Un ky 20 months Aged Out No longer eligible b ased on patient's age to complete this topic Varicella Vaccines Aged Out No longer eligible based on patient's age to complete this topic
== END 2025-03-12 13:30 | disposition home or self-care (01) ==
LOC: HO.HMGCLDS 13:29
PROVIDERS: PCP Internal Medicine; Visit Provider Internal Medicine
DX: R79.89 Other specified abnormal findings of blood chemistry (principal); Z13.29 Encounter for screening for other suspected endocrine disorder
CPT/HCPCS: 36415; 84443

== ENCOUNTER 2025-04-03 08:19 | Outpatient (REF) | payer OTHER, SELFPAY ==
--- NOTE | ~2025-04-03 | MM_ITS ---
EXAMINATION: MM SCREENING DIGITAL BREAST TOMOSYNTHESIS, BILATERAL CLINICAL INFORMATION: Screening. Asymptomatic. COMPARISON: Comparison made to multiple prior, most recent May 12, 2021, and most remote April 29, 2011. TECHNIQUE: Digital breast tomosynthesis is performed in mediolateral oblique and craniocaudal views along with computer-aided detection (CAD). Synthesized 2D images are generated from the tomosynthesis. FINDINGS: BREAST COMPOSITION: There are scattered areas of fibroglandular density. BILATERAL BREASTS: No significant masses, suspicious calcifications or other abnormalities are seen in either breast. MM/MM tomosynthesis screening BI IMPRESSION: BILATERAL BREASTS: Negative, no mammographic evidence of malignancy. Normal interval follow-up is recommended in 12 months. ASSESSMENT: BI-RADS: Category 1: Negative RECOMMENDATION: Routine annual mammography screening. FOLLOW-UP: 1 year F/U This examination should not preclude the clinical evaluation of a suspicious palpable abnormality. This patient's information was entered into a reminder system with a target due date for their next mammogram. Electronically signed by: Judi Aden MD 04/03/2025 08:29 PM EDT
--- OUTSIDE RECORDS SUMMARY | 2025-04-03 08:37 | XMS_ITS | Clinical Summary ---
Author Organization [facility] Address [address] [place] [address] Care Team Providers Care Medical And Health Services Manager Name Role Phone Unavailable Primary Care Provider Unavailabl e Surgical History Surgery Date Site/Laterality Comments BACK SURGERY 2003 PROCEDURE: HISTORICAL BACK SURGERY; COMMENT: disc fusion L3-4 NECK SURGERY PROCEDURE: HISTORICAL NECK SURGERY; COMMENT: disc removal. CHOLECYSTECTOMY PROCEDURE: [place] LAPAROSCOPY SURG CHOLECYSTECTOMY Medical History Medical History [...] Last Done Comments Breast Cancer Screening 1962 Colorectal Cancer Screening: Colonoscopy 1962 DTaP,Tdap,and Td Vaccines (1 - Tdap) 1981 Pneumococcal Vaccine: 50+ Ye ars (1 of 2 - PCV) 1981 Cervical Cancer Screening: P ap Smear 1983 Zoster Vaccines (1 of 2) 01/20/2012 HIV Screening 06/03/2022 Hepatitis C Screening 06/03/2022 [...]
== END 2025-04-03 08:20 | disposition home or self-care (01) ==
LOC: HO.MAMMO 08:19
PROVIDERS: PCP Internal Medicine; Visit Provider Internal Medicine
DX: Z12.31 Encounter for screening mammogram for malignant neoplasm of breast (principal)
CPT/HCPCS: 77063; 77067

== ENCOUNTER → 2025-04-03 08:30 | Outpatient (BNV) | payer OTHER, SELFPAY | PROVIDERS: PCP Internal Medicine; Visit Provider Radiology Body Imaging | DX: Z12.31 Encounter for screening mammogram for malignant neoplasm of breast (principal) | CPT/HCPCS: 77063; 77067 ==

== ENCOUNTER 2025-04-18 11:14 | Outpatient (AMB) | payer OTHER, SELFPAY ==
[2025-04-18 11:42] VITALS: BP 116/70; PULSE 91; TEMP 36.8; O2SAT 97; BMI 34.5
--- NOTE | 2025-04-18 11:42 | AM.OFFWIN_ITS ---
Intake Vital Signs 04/18/25 11:42 Height 5 ft 7 in Weight 220 lb BMI 34.5 BP 116/70 Blood Pressure Location Rt brachial Position Sitting Pulse 91 Pulse Source Pulse Oximeter Temp 98.2 F Temp Source Oral Pulse Oximetry (%) 97 Oxygen Delivery Method Room Air Intake Visit Reasons: EP-lower back pain, lt leg pain Intake Note: pt presents with left lower back pain radiating down left leg x2 wks Patient Tobacco Use Status: Current someday Tobacco user Allergies animal dander Allergy (Unknown, Verified 04/18/25 11:46) SNEEZING, ITCHY No Known Drug Allergies (NO KNOWN DRUG ALLERGIES) Allergy (Unknown, Verified 04/18/25 11:46) N/A SOIL Allergy (Unknown, Uncoded 02/09/25 15:43) SNEEZING, ITCHY Do you need a note to return to daycare/school/sports/work: No HPI HPI Comments History of Present Illness Details History - The patient is a 65-year-old female pr esenting with low back pain radiating to the left leg. - The pain is sharp, persistent for thre e weeks, and occurs during standing, sitting, or walking. - The patient has a history of sciatica but notes this pain is different, as it does not extend to the toes and remains constant. - Prednisone was prescribed for seven da ys without relief on 04/07 from a previous visit. - Pain is exacerbated by bending and lif ting, with tenderness noted in the sacroiliac joint. - The patient has undergone back surgery and previous spinal x-rays. - She denies trauma or fall. - She denies saddle anesthesia, numbness , tingling, and incontinence. - She denies rashes, dysuria or hematuri a. Physical Exam General: cooperative, healthy appearing and comfortable, patient oriented x3 Head: Normal to inspection, normocephalic/atraumatic Effort & Inspection: Normal respiratory effort and able to speak in complete sentences. Cardiac: RRR, no M/R/G noted. Normal S1 and S2. Respiratory: Clear to auscultation bilaterally. No w/r/r noted. Back/spine: Tenderness noted in the left SI joint on palpation. No CVA tenderness bilaterally. Cervical, thoracic and lumbar spine normal to inspection. Cervical ROM normal, no midline spinous tenderness noted. Thoracic ROM normal, lumbar ROM normal. No midline vertebral spinous tenderness noted. No step offs noted. No TTP of the thoracic or lumbar paraspinous or paravertebral muscles. TTP of the left SI joint. DTR are 2+ on the lower extremities noted. Ambulates with a steady gait. Extremities: Straight leg raise test negative on right; Straight leg raise test positive on left; motor strength normal 5/5 bilaterally. Neuro: Sensation intact. Patient was informed and verbally consented to the use of an ambient scribe for clinic note documentation during this visit. [facility] Surgical History History of ovarian cyst History of colonoscopy History of section History of shoulder surgery History of surgery History of neck surgery History of back surgery Family History Father Stomach cancer Mother Diabetes mellitus CVD (cardiovascular disease) Maternal Grandfather No problems noted. Maternal Grandmother Lung cancer Paternal Grandmother No problems noted. Paternal Grandfather No problems noted. Brother No problems noted. Brother No problems noted. Sister No problems noted. Son No problems noted. Son No problems noted. Son No problems noted. Daughter No problems noted. Social History Housing: House Alcohol intake: never Patient Tobacco Use Status: Current someday Tobacco user Tobacco use type: Cigarette Years Smoked: 2 years e-Cigarette/Vaping Use: Never Used service: No Current occupational status: employed Cognitive needs: No Hearing needs: No Vision needs: No Review of Systems Const All systems reviewed & are unremarkable except as noted in HPI and below Physical Exam Vital Signs: Last Vital Signs Temp 98.2 F 04/18/25 11:42 Pulse 91 04/18/25 11:42 BP 116/70 04/18/25 11:42 Pulse Ox 97 04/18/25 11:42 Oxygen Delivery Method Room Air 04/18/25 11:42 BMI result Body Mass Index 34.5 Assessment & Plan Assessment & Plan (1) Back pain: Code(s): M54.9 - Dorsalgia, unspecified Qualifiers: Back pain location: low back pain Chronicity: acute Back pain laterality: left Sciatica presence: with sciatica Sciatica laterality: sciatica of left side Qualified Code(s): M54.42 - Lumbago with sciatica, left side Plan Most likely muscle strain causing a sciatica plan - Start Flexeril (cyclobenzaprine) three times daily as needed for pain relief. - Refer to physical therapy for management of low back pain and mobility enhancement. - Consider MRI if symptoms do not improve, considering the patient's surgical history and prior imaging. - Recommend rest, ice, and heat application to manage symptoms. - Naproxen as needed for pain - activities as tolerated and no heavy lifting - follow up with PCP Medications: New cyclobenzaprine 5 mg PO Q8H PRN 20 tabs 0RF Muscle Spasm naproxen 500 mg PO Q12H PRN 20 tabs 0RF pain 7 days Coding Level of Care Code Est Pt Level 4 (52949) Diagnoses Acute left-sided low back pain with left-sided sciatica M54.42 Back pain location: low back pain Chronicity: acute Back pain laterality: left Sciatica presence: with sciatica Sciatica laterality: sciatica of left side
--- OUTSIDE RECORDS SUMMARY | 2025-04-18 13:52 | XMS_ITS | Data Portability ---
Author Organization [facility] [address] Address [address] [place] [address] Assessment Encounter Date Assessment Date Assessment LastModified by Organization Details LastModified Time 10/20/2023 10/20/2023 Based on clinical presentation, you are being diagnosed with Pneumonia. I am going to treat with an antibiotic. I would recommend a follow up visit with your PCP in 1 week to assess improvement. Take Tylenol for fever. You are going to have to have a repeat chest x-ray in 4 weeks. Non-Pharmacol ogical treatment for coughin. Throat lozenges 2. Hot tea with Honey 4. Avoidance of second hand smoke. I would plan on being seen again if any of the following symptoms develop: 1. Fever> 102.5 2. Shortness of breath 3. Wheezing 4. Worsening Cough. I would go to the ER if you develop: 1. Severe Shortness of breath 2. Chest Pain 3. Wheezing 4. Coughing up Blood ricardo Not available 10/20/2023 17:21:00 Plan of Treatment Reminders Order Date Submit Date Provider Last Modified By Organization Details Last Modified Time Details Appointments None recorded. Lab None recorded. Referral None recorded. Procedures None recorded. Surgeries None recorded. Imaging XR, chest, 2 view 2023 024 [email or web address] [facility], [address] [place] [address], [address], 17:24:35 Medication Orders benzonatate 100 mg capsule 2023 024 ricardo [facility]/Pharmacy #[id number], [address] [place], [address], 19:22:15 Zithromax Z-Artur 250 mg tablet 2023 024 [facility]/Pharmacy #[id number], [address] [place], [address], 4 17:20:38 Augmentin 875 mg-125 mg tablet 2023 024 [facility]/Pharmacy #1234, [address] [place], [address], 4 17:20:38 Patient TargetsNo targets recorded. Patient Instructions Encounter Date Encounter Id Patient Instructions Last Modified By Organization Details Last Modified Time 10/20/2023 [id number] cough: care instructions ricardo Not available 10/20/2023 16:29:11 pneumonia: care instructions ronchaga Not available 10/20/2023 17:20:36 Reason for Referral None Reported. Results Created Date Observation Date Name Description Value Unit Range Abnormal Flag Note LastModifiedBy Organization Detail LastModifiedTime 10/20/1910/20/2023 XR, chest , 2 view No observ ation record ed. ricardo [facility] [address] [facility], [place], [address], 10/20/2023 18:07:08 Result Notes None recorded. Problems Name Problem SNOMED Code Status Onset Date Resolution Date Notes Provider Name and Address Organization Details Recorded Time Cough 78693832 Active 024 SUBHA FLORENTINO NP [address] [place], [id number], [place] - [facility] 4 16:28:51 Community acquired pneumonia 854737293 Active 024 SUBHA FLORENTINO NP [address] [place], [address], [place] - [facility] 4 17:14:31 Problem Notes None recorded. Medical Equipment None Reported. Allergies No known drug allergies Medications Name Sig Start Date Stop Date Status Note LastModified by Organization Details LastModified Time Augmentin 875 mg-125 mg tablet Take 1 tablet every 12 hours by oral route for 7 days. active Not Available Not Available Not Avai lable Zithromax Z-Artur 250 mg tablet TAKE 2 TABLETS (500 MG) BY ORAL ROUTE ONCE DAILY FOR 1 DAY THEN 1 TABLET (250 MG) BY ORAL ROUTE ONCE DAILY FOR 4 DAYS active Not Available Not Available Not Avai lable benzonatate 100 mg capsule Take 1 capsule 3 times a day by oral route for 10 days. active Not Available Not Available Not Avai lable Vitals Date Recorded Body height Body mass index (BMI) Body weight Oxygen saturation Oxygen saturation in Arterial blood by Pulse oximetry Heart rate Respiratory rate Body temperature Systolic And Diastolic Provider Name and Address Organization Details Last Updated DateTime 170.18 cm 28.2 kg/m2 16953.6 3 g 95 % 95 % 84 /min 16 /min 98.3 [degF] 120/75 mm[Hg] Chika WHIPPLE [facility] 16:12:44 Social History Question Answer Notes LastModified by [email or web address] Details LastModified Time Tobacco Smoking Status Never Smoker Chika dasilva PA [facility] 10/20/2023 16:11:05 Have You Had A Flu Shot This Season? No Information not available 10/20/2023 If No, Would You Like A Flu Shot Today? A/P Information not available 10/20/2023 Have You Had Direct Contact, Or Contact During Intimacy, With Monkeypox Rash, Scabs, Or Body Fluids From A Person With Monkeypox? No Information not available 10/20/2023 What Was The Date Of Your Most Recent Tobacco Screening? 10/20/2023 Information not available 10/20/2023 Have You Recently Traveled Abroad? No Information not available 10/20/2023 Sex: Unknown Functional Status Question Answer Note LastModified by [email or web address] Details LastModified Time Do you use any illicit or recreational drugs? No Information not available 10/20/2023 What is your level of alcohol consumption? Occasional Information not available 10/20/2023 Are you currently employed? Yes Information not available 10/20/2023 Mental Status None recorded. Family History Relationship Description Onset Age of this Age Resolved Age Notes LastModified by Organization Details LastModified Time Mother Diabetes mellitus Not available 2023 16:10:26 Medical History No medical history recorded. Gynecological History Statement/Question Response Is there any chance of ? No LMP Definite Obstetrics History GPAL:G 0 P 0 0 0 0 Immunizations Vaccine Type Date Status Note Provider Nam e and Address Organization Details Recorded Time COVID-19, mRNA, LNP-S, PF, 30 mcg/0.3 mL dose 1 completed Chika Hayes null, [place] - [facility] 10/20/2023 16:09:52 COVID-19, mRNA, LNP-S, PF, 30 mcg/0.3 mL dose 1 completed Chika Hayes null, [place] - [facility] 10/20/2023 16:09:52 Influenza, split virus, trivalent, preservative 1 completed Chika Hayes null, [place] - [facility] 10/20/2023 16:09:52 Past Encounters Encounter ID Performer Location Encounter Start Date Encounter Closed Date Diagnosis/Indication Diagnosis SNOMED-CT Code Diagnosis ICD10 Code Diagnosis IMO Codes Diagnosis Note [id number] [facility] [address] [place] [address] 11/07/2018 12:00:17 11/07/2018 12:23:09 [id number] [place] [address] [address] 10/20/2023 15:57:45 10/20/2023 17:24:35 Cough 56083432 R05.9 Community acquired pneumonia 892464445 J18.9 Health Concerns Section Related Observation LastModified by Organization Detai ls LastModified Time None Recorded Concern Status LastModified by Organization Details LastModified Time None Recorded Advance Directives Directive None Recorded Payers Insurance Date Sequence Insurance Name Policy Number Policy Stewart Covered Member ID Stewart Member ID Guarantor Name 05/11/2024 3 [employer] - [facility] [place] (MEDICARE REPLACEMENT/A DVANTAGE - HMO) Gina Stanton [id number] Gina Romy 05/11/2024 1 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 Gina Stanton [id number] Gina Hammondharme 10/25/2023 1 [place] [employer] Gina Stanton [id number] Gina Hammondharme 05/11/2024 2 [place] [facility] Gina Stanton [id number] Gina Romy Notes Date Note Type Note Provider Name and Address Organization Details Recorded Time 10/20/2023 text/html CoughReported by Patient cough for one weekchills and no feverPt has been taking tylenol and robitussinno relief, cough is productive, green colored SUBHA FLORENTINO NP [address] [place], [address], [place] - [facility] 10/20/2023 19:24:36 OBGyn Episode No OBEpisode recorded.
== END 2025-04-18 12:32 | disposition home or self-care (01) ==
PROVIDERS: PCP Internal Medicine; Visit Provider Physician Assistant Medical
DX: M54.42 Lumbago with sciatica, left side (principal)

== ENCOUNTER → 2025-04-18 11:14 | Outpatient (BNVA) | payer OTHER, SELFPAY | PROVIDERS: PCP Internal Medicine; Visit Provider Physician Assistant Medical | DX: M54.42 Lumbago with sciatica, left side (principal) | CPT/HCPCS: 99212 ==

== ENCOUNTER 2025-04-30 13:12 | Outpatient (REF) | payer OTHER, SELFPAY ==
--- NOTE | ~2025-04-30 | US_ITS ---
EXAMINATION: US LOWER EXTREMITY VENOUS (REFLUX EXAM), BILATERAL CLINICAL INFORMATION: Vascular insufficiency screening exam, M79.89 - Other specified soft tissue disorders COMPARISON: None. TECHNIQUE: Color flow triplex imaging and compression Doppler was performed to evaluate both the deep and the superficial systems bilaterally. To evaluate the superficial system, the examination was performed in the upright position. Color-flow Doppler ultrasound and compression ultrasound were utilized. In addition, maneuvers were utilized to demonstrate reflux. FINDINGS: 1. DEEP VENOUS ULTRASOUND OF THE RIGHT LOWER EXTREMITY: Common Femoral Vein: Compressible, normal respiratory variation and augmented flow. Femoral Vein: Compressible, normal color flow and augmentation. Popliteal Vein: Compressible, normal augmentation. Deep Reflux: There is no evidence of reflux in the deep system in either the common femoral vein, superficial femoral or the popliteal vein. 2. SUPERFICIAL ULTRASOUND WITH DOPPLER OF RIGHT LOWER EXTREMITY: GREAT SAPHENOUS VEIN: Saphenofemoral Junction: 0.8 cm; Reflux: 0 ms Proximal Thigh: 0.5 cm; Reflux: 0 ms Mid Thigh: 0.5 cm; Reflux: 0 ms Distal Thigh: 0.4 cm; Reflux: 0 ms At Knee: 0.4 cm; Reflux: 0 ms Below Knee/Proximal Calf: 0.3 cm; Reflux: 0 ms Mid Calf: 0.3 cm; Reflux: 0 ms Ankle/Distal Calf: 0.4 cm; Reflux: 0 ms Lateral accessory GREAT SAPHENOUS VEIN: Saphenofemoral Junction: 0.2 cm; Reflux: 0 ms Mid Thigh: 0.2 cm; Reflux: 0 ms SMALL SAPHENOUS VEIN: Drainage: Popliteal vein Saphenopopliteal Junction: 0.2 cm; Reflux: 0 ms Mid calf: 0.3 cm; Reflux: 0 ms Distal: 0.3 cm; Reflux: 0 ms VEIN OF GIACOMINI: Size: NA cm Reflux: NA ms PERFORATORS: Location: Small saphenous vein, value stream coach into varicosity,, mid Size: 0.3 cm Reflux: 0 ms Location: Small saphenous vein, distal Size: 0.2 cm Reflux: 0 ms Location: Greater saphenous vein, proximal thigh Size: 0.2 cm Reflux: 0 ms VARICOSITIES > 3mm: Location: None Imaged 3. DEEP VENOUS ULTRASOUND OF THE LEFT LOWER EXTREMITY: Common Femoral Vein: Compressible, normal respiratory variation and augmented flow. Femoral Vein: Compressible, normal color flow and augmentation. Popliteal Vein: Compressible, normal augmentation. Deep Reflux: There is no evidence of reflux in the deep system in either the common femoral vein, superficial femoral or the popliteal vein. 4. SUPERFICIAL ULTRASOUND WITH DOPPLER OF LEFT LOWER EXTREMITY: GREAT SAPHENOUS VEIN: Saphenofemoral Junction: 0.8 cm; Reflux: 0 ms Proximal Thigh: 0.5 cm; Reflux: 0 ms Mid Thigh: 0.5 cm; Reflux: 0 ms Distal Thigh: 0.5 cm; Reflux: 0 ms At Knee: 0.5 cm; Reflux: 0 ms Below Knee/Proximl calf: 0.5 cm; Reflux: 0 ms Mid Calf: 0.3 cm; Reflux: 0 ms Distal Calf/Ankle: 0.3 cm; Reflux: 0 ms Lateral accessory GREAT SAPHENOUS VEIN: None documented SMALL SAPHENOUS VEIN: Drainage: Thigh extension Saphenopopliteal Junction: 0.2 cm; Reflux: 0 ms Mid calf: 0.2 cm; Reflux: 0 ms Distal calf: 0.3 cm; Reflux: 0 ms VEIN OF GIACOMINI: Size: NA Reflux: NA PERFORATORS: Location: Greater saphenous vein, midthigh Size: 0.2 cm Reflux: 0 ms Location: Greater saphenous vein, mid calf Size: 0.2 cm Reflux: 0 ms VARICOSITIES > 3mm: Location: None Imaged US/US venous duplex LE BI IMPRESSION: Right: No venous reflux is demonstrated. Left: No venous reflux is demonstrated. Electronically signed by: Darryn Husain MD 04/30/2025 02:38 PM EDT
--- OUTSIDE RECORDS SUMMARY | 2025-04-30 16:49 | XMS_ITS | Clinical Summary ---
Author Organization [facility] Address [address] [place] [address] Care Team Providers Care Special Needs Nanny Name Role Phone Unavailable Primary Care Provider Unavailabl e Surgical History Surgery Date Site/Laterality Comments BACK SURGERY 2003 PROCEDURE: HISTORICAL BACK SURGERY; COMMENT: disc fusion L3-4 NECK SURGERY PROCEDURE: HISTORICAL NECK SURGERY; COMMENT: disc removal. CHOLECYSTECTOMY PROCEDURE: [place] LAPAROSCOPY SURG CHOLECYSTECTOMY Medical History Medical History [...]
--- OUTSIDE RECORDS SUMMARY | 2025-04-30 16:49 | XMS_ITS ---
Author Name [facility] Organization Unknown Care Team Organization Name Specialty Phone Email Start Date End Da te [facility] 04/19/2025 [facility] 04/16/2025
--- OUTSIDE RECORDS SUMMARY | 2025-04-30 16:49 | XMS_ITS | Data Portability ---
Author Organization [facility] [address] Address [address] [place] [address] Assessment Encounter Date Assessment Date Assessment LastModified [...] chest, 2 view 2023 024 [email or web address] [facility], [address] [place] [address], [address], 17:24:35 Medication Orders benzonatate 100 mg capsule 2023 024 ricardo [facility]/Pharmacy #[id number], [address] [place], [address], 19:22:15 Zithromax Z-Artur 250 mg tablet 2023 024 [facility]/Pharmacy #1234, [address] [place], [address], 4 17:20:38 Augmentin 875 mg-125 mg tablet 2023 024 [facility]/Pharmacy #1234, [address] [place], [address], 4 17:20:38 Patient TargetsNo targets recorded. Patient Instructions Encounter Date Encounter Id Patient Instructions Last Modified By Organization Details Last Modified Time 10/20/2023 [id number] cough: care instructions ricardo Not available 10/20/2023 16:29:11 pneumonia: care instructions ronchaga Not available 10/20/2023 17:20:36 Reason for Referral None Reported. Results Created Date Observation Date Name Description Value Unit Range Abnormal Flag Note LastModifiedBy Organization Detail LastModifiedTime 10/20/1910/20/2023 XR, chest , 2 view No observ ation record ed. ricardo [facility] [address] [facility] [place], [address], 10/20/2023 18:07:08 Result Notes None recorded. Problems Name Problem SNOMED Code Status Onset Date Resolution Date Notes Provider Name and Address Organization Details Recorded Time Cough 73188923 Active 024 SUBHA FLORENTINO NP [address] [place], [address], [place] - [facility] 4 16:28:51 Community acquired pneumonia 285189601 Active 024 SUBHA FLORENTINO NP [address] [place], [address], [place] - [facility] 4 17:14:31 [...] Last Updated DateTime 170.18 cm 28.2 kg/m2 75311.6 3 g 95 % 95 % 84 /min 16 /min 98.3 [degF] 120/75 mm[Hg] Chika WHIPPLE [facility] 16:12:44 Social History Question Answer Notes LastModified by [facility] Details LastModified Time Tobacco Smoking Status Never Smoker Chika dasilva PA [facility] 10/20/2023 16:11:05 Have You Had A Flu [...] Functional Status Question Answer Note LastModified by [facility] Details LastModified Time Do you use any [...] ICD10 Code Diagnosis IMO Codes Diagnosis Note [id number] [facility] [address] [place] [address] 11/07/2018 12:00:17 11/07/2018 12:23:09 [id number] [place] [address] [address] 10/20/2023 15:57:45 10/20/2023 17:24:35 Cough 40090470 R05.9 Community acquired pneumonia 547023068 J18.9 Health Concerns Section Related Observation LastModified by Organization Detai ls LastModified Time None Recorded Concern Status LastModified by Organization Details LastModified Time None Recorded Advance Directives Directive None Recorded Payers Insurance Date Sequence Insurance Name Policy Number Policy Stewart Covered Member ID Stewart Member ID Guarantor Name 05/11/2024 3 [employer] [facility] - [facility] - [place] (MEDICARE REPLACEMENT/A DVANTAGE - HMO) Gina Stanton [id number] Gina Romy 05/11/2024 1 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 Gina Stanton [id number] Gina Hammondharme 10/25/2023 1 [place] [employer] Gina Stanton [id number] Gina Hammondharme 05/11/2024 2 [place]: [facility] Gina Stanton [id number] Gina Romy Notes Date Note Type Note Provider Name and Address Organization Details Recorded Time 10/20/2023 text/html CoughReported by Patient cough for one weekchills and no feverPt has been taking tylenol and robitussinno relief, cough is productive, green colored SUBHA FLORENTINO NP [address] [place], [address], [place] - [facility] 10/20/2023 19:24:36 OBGyn Episode No OBEpisode recorded.
== END 2025-04-30 13:13 | disposition home or self-care (01) ==
LOC: HO.US 13:12
PROVIDERS: PCP Internal Medicine; Visit Provider Internal Medicine
DX: M79.89 Other specified soft tissue disorders (principal)
CPT/HCPCS: 93970

== ENCOUNTER → 2025-04-30 13:13 | Outpatient (BNV) | payer OTHER, SELFPAY | PROVIDERS: PCP Internal Medicine; Visit Provider Radiology Diagnostic Radiology | DX: M79.89 Other specified soft tissue disorders (principal) | CPT/HCPCS: 93970 ==

== ENCOUNTER 2025-05-11 11:51 | Outpatient (AMB) | payer OTHER, SELFPAY ==
[2025-05-11 11:54] VITALS: BP 130/74; PULSE 84; O2SAT 97; BMI 36.2
--- NOTE | 2025-05-11 11:54 | MHC.PC.OV ---
Vital Signs 05/11/25 11:54 Height 5 ft 7 in Weight 231 lb BMI 36.2 BP 130/74 Blood Pressure Location Lt brachial Position Sitting Pulse 84 Pulse Source Pulse Oximeter Pulse Oximetry (%) 97 Intake Visit Reasons: lower back pain and pain on her left leg Allergies animal dander Allergy (Unknown, Verified 05/11/25 11:55) SNEEZING, ITCHY No Known Drug Allergies (NO KNOWN DRUG ALLERGIES) Allergy (Unknown, Verified 05/11/25 11:55) N/A SOIL Allergy (Unknown, Uncoded 02/09/25 15:43) SNEEZING, ITCHY Medication List - Last Reconciled 05/11/25 by Afshan Gutierrez MD cetirizine (Zyrtec) 10 mg PO DAILY 90 days cyclobenzaprine 5 mg PO Q8H PRN desloratadine 5 mg PO DAILY diclofenac sodium 1% (Voltaren Arthritis Pain) 2 grams topical QID fluticasone propionate 50 mcg/actuation 1 spray intranasal DAILY furosemide 20 mg PO QAM PRN naproxen 500 mg PO Q12H PRN 7 days nystatin 1 appl topical DAILY 30 days tizanidine 2 mg PO ONCE PRN 30 days Tobacco use date assessed: 02/09/25 Dental Screening Dental Screen Date: 05/11/25 Did you have a dental visit in the last 12 months?: Yes Did you have a dental problem in the last 6 months where you did not have access to dental care?: No Was dental information given to patient?: Patient has dentist HPI lower back pain and pain on her left leg HPI Details History of Present Illness The patient is a 65-year-old female presenting with a flare-up of low back pain with left leg pain and left foot numbness. Chronic low back pain: - The patient has a history of lumbar surgery in 2004. - A [employer] spinal cord stimulator was implanted in 2018 and explanted in 2013 due to issues with battery charging. - A lumbar spine MRI from September 2022 showed postoperative findings related to instrumental fusion at L3-L4, mild to moderate bilateral neural foraminal stenosis at L2-L3, and severe spinal canal stenosis at L4-L5. - She received epidural steroid injections from pain management which were helpful. - She also received two helpful injections from [facility] last year. - During the current flare-up, she experiences pain in her left leg that is so severe she cannot stand on it, along with left foot numbness. - A recent visit to a walk-in clinic resulted in prescriptions for naproxen and tizanidine, which have not been effective. - The patient has previously taken tramadol, which was helpful but sometimes causes drowsiness. Medical History: - Chronic low back pain - Lumbar spinal stenosis - History of epidural steroid injections Surgical History: - Lumbar surgery (2003) - Spinal cord stimulator placement (implanted 2018, explanted 2013) Medications: - Naproxen, ineffective - Tizanidine, ineffective - Tramadol previously, was helpful but caused drowsiness Social History: - Employment: The patient works in [employer]. - Work Schedule: She works Wednesday through Wednesday and typically returns home around 7:00 PM. Diagnostic Results: - Lumbar Spine MRI (September 2022): Showed postoperative findings from instrumental fusion at L3-L4, mild to moderate bilateral neural foraminal stenosis at L2-L3, and severe spinal canal stenosis at L4-L5. Problem List - Chronic low back pain - Lumbar spinal stenosis - Left lower extremity radiculopathy Plan - The patient is to discontinue naproxen and tizanidine as they are not providing relief. - A prescription for prednisone will be sent to the pharmacy to be taken for five days in the morning to reduce inflammation. - A prescription for tramadol 60 tablets will be sent, to be taken one at night for pain. - The patient was advised to contact [facility] at [phone] to schedule an appointment for injections, as she is an established patient there. - If a new referral is required for pain management, the office will provide one. - The patient will schedule a follow-up appointment in two months and cancel her existing August appointment. Review of Systems - General: No fever no chills - Neurological: No headaches no dizziness - Ear nose throat: No sore throat no hearing difficulty no ear pain - Cardiovascular: No syncope, no chest pain, no palpitations - Gastrointestinal: No nausea vomiting or diarrhea - Endocrine: No polyuria polydipsia no heat intolerance - Genitourinary: No dysuria , no blood in urine Physical Exam General: No acute distress HEENT: No acute findings Neck: Supple Respiratory system: Able to talk in full sentences, no audible wheeze Cardiovascular: S1-S2 regular in rate and rhythm Gastrointestinal: No pain Extremities: no swelling 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 Maternal Grandmother Lung cancer Paternal Grandmother No problems noted. Paternal Grandfather No problems noted. Brother No problems noted. Brother No problems noted. Sister No problems noted. Son No problems noted. Son No problems noted. Son No problems noted. Daughter No problems noted. Social History Housing: House Alcohol intake: never Patient Tobacco Use Status: Current someday Tobacco user Tobacco use type: Cigarette Years Smoked: 2 years e-Cigarette/Vaping Use: Never Used service: No Current occupational status: employed Cognitive needs: No Hearing needs: No Vision needs: No Questionnaire Thrive Questionnaire Date Thrive assessed: 02/09/25 I am a: Patient What is your living situation today?: I have a steady place to live Within the past 12 months, did the food you bought not last and you didn't have the money to get more?: Never true Within the past 12 months, did you worry whether your food would run out before you got money to buy more?: Never true Do you have trouble paying for medicines?: No Do you have trouble getting transportation to medical appointments?: No Do you have trouble paying your heating and electricity bill?: No Do you have trouble taking care of your child, family member or friend?: No Do you have trouble with day-to-day activities such as bathing, preparing meals, shopping, managing finances, etc.?: No Are you currently unemployed and looking for a job?: No Are you interested in more education?: No Please select the resources that you would like help with: None Currently or been in a relationship where the following occur: No concerns reported THRIVE Score: 0 GRZEGORZ-7 AMB Questionnaire GRZEGORZ-7 Date GRZEGORZ - 7 assessed: 02/09/25 Source: Developed by Drs. Damian Wilkinson, Jana Crespo, Barber Ramirez and colleagues, with an educational kameron from [employer]. Physical exam (Primary Care) Vital Signs: Last Vital Signs Pulse 84 05/11/25 11:54 BP 130/74 05/11/25 11:54 Pulse Ox 97 05/11/25 11:54 BMI result Body Mass Index 36.2 Tobacco/Smoking Status: Tobacco use Status Tobacco use date assessed 02/09/25 05/11/25 11:55 Patient Tobacco Use Status Current someday Tobacco 05/11/25 11:55 Tobacco use type Cigarette 05/11/25 11:55 e-Cigarette/Vaping Use Never Used 05/11/25 11:55 Thrive Assessment: Date of Thrive Assessment Date Thrive assessed 02/09/25 05/11/25 11:55 Currently or been in a relationship where the following occur: No concerns reported Coding Level of Care Code Est Pt Level 3 (31557) Diagnoses 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 Spinal stenosis of lumbar region with neurogenic claudication M48.062 Neurogenic claudication status: with neurogenic claudication Pain management R52 Assessment & Plan Assessment & Plan (1) Failed back syndrome of lumbar spine: Code(s): M96.1 - Postlaminectomy syndrome, not elsewhere classified Category: Medical (2) Spinal stenosis, lumbar: Code(s): M48.061 - Spinal stenosis, lumbar region without neurogenic claudication Category: Medical Qualifiers: Neurogenic claudication status: with neurogenic claudication Qualified Code(s): M48.062 - Spinal stenosis, lumbar region with neurogenic claudication (3) Pain management: Code(s): R52 - Pain, unspecified Category: Medical Plan . Chronic low back pain: - The patient has a history of lumbar surgery in 2004. - A [employer] spinal cord stimulator was implanted in 2018 and explanted in 2013 due to issues with battery charging. - A lumbar spine MRI from September 2022 showed postoperative findings related to instrumental fusion at L3-L4, mild to moderate bilateral neural foraminal stenosis at L2-L3, and severe spinal canal stenosis at L4-L5. - She received epidural steroid injections from pain management which were helpful. - She also received two helpful injections from [facility] last year. - During the current flare-up, she experiences pain in her left leg that is so severe she cannot stand on it, along with left foot numbness. - A recent visit to a walk-in clinic resulted in prescriptions for naproxen and tizanidine, which have not been effective. - The patient has previously taken tramadol, which was helpful but sometimes causes drowsiness. 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 - Work Schedule: She works Wednesday through Wednesday and typically returns home around 7:00 PM. Diagnostic Results: - Lumbar Spine MRI (September 2022): Showed postoperative findings from instrumental fusion at L3-L4, mild to moderate bilateral neural foraminal stenosis at L2-L3, and severe spinal canal stenosis at L4-L5. Problem List - Chronic low back pain - Lumbar spinal stenosis - Left lower extremity radiculopathy Plan - The patient is to discontinue naproxen and tizanidine as they are not providing relief. - A prescription for prednisone will be sent to the pharmacy to be taken for five days in the morning to reduce inflammation. - A prescription for tramadol 60 tablets will be sent, to be taken one at night for pain. - The patient was advised to contact [facility] at [phone] to schedule an appointment for injections, as she is an established patient there. - If a new referral is required for pain management, the office will provide one. - The patient will schedule a follow-up appointment in two months and cancel her existing August appointment. Medications: New prednisone 20 mg PO DAILY 5 tabs 0RF 5 days tramadol 50 mg PO BEDTIME PRN 60 tabs 0RF pain back 60 days Discontinued tizanidine Discontinued Reason: Doctor's Order 2 mg PO ONCE 30 days PRN 30 caps 0RF muscle spasticity naproxen Discontinued Reason: Doctor's Order 500 mg PO Q12H 7 days PRN 20 tabs 0RF pain
--- OUTSIDE RECORDS SUMMARY | 2025-05-11 14:16 | XMS_ITS | Data Portability ---
Author Organization [facility] [address] Address [address] [place] [address] Assessment Encounter Date Assessment Date Assessment LastModified [...] chest, 2 view 2023 024 [email or web address] [facility], [address] [place] [address], [address], 17:24:35 Medication Orders benzonatate 100 mg capsule 2023 024 ricardo [facility][id number], [address] [place], [address], 19:22:15 Zithromax Z-Artur 250 mg tablet 2023 024 [facility] #[id number], [address] [place], [address], 4 17:20:38 Augmentin 875 mg-125 mg tablet 2023 024 [id number], [address] [place], [address], 4 17:20:38 Patient TargetsNo targets recorded. Patient Instructions Encounter Date Encounter Id Patient Instructions Last Modified By Organization Details Last Modified Time 10/20/2023 [id number] cough: care instructions ricardo Not available 10/20/2023 16:29:11 pneumonia: care instructions [email or web address] Not available 10/20/2023 17:20:36 Reason for Referral None Reported. Results Created Date Observation Date Name Description Value Unit Range Abnormal Flag Note LastModifiedBy Organization Detail LastModifiedTime 10/20/1910/20/2023 XR, chest , 2 view No observ ation record ed. ricardo [facility] [address], [place], [address], 10/20/2023 18:07:08 Result Notes None recorded. Problems Name Problem SNOMED Code Status Onset Date Resolution Date Notes Provider Name and Address Organization Details Recorded Time Cough 78319565 Active 024 SUBHA FLORENTINO NP [address] [place], [address], [place] - [facility] 4 16:28:51 Community acquired pneumonia 692903746 Active 024 SUBHA FLORENTINO NP [address] [place], [address], [place] - [facility] 4 17:14:31 [...] Last Updated DateTime 170.18 cm 28.2 kg/m2 82579.6 3 g 95 % 95 % 84 /min 16 /min 98.3 [degF] 120/75 mm[Hg] Chika WHIPPLE [facility] 16:12:44 Social History Question Answer Notes LastModified by [employer] Details LastModified Time Tobacco Smoking Status Never Smoker Chika dasilva PA [facility] 10/20/2023 16:11:05 Have You Had A Flu [...] Functional Status Question Answer Note LastModified by [employer] Details LastModified Time Do you use any [...] ICD10 Code Diagnosis IMO Codes Diagnosis Note [id number] [facility] [address] [place] [address] 11/07/2018 12:00:17 11/07/2018 12:23:09 [id number] SUBHA FLORENTINO NP [address] [address] 10/20/2023 15:57:45 10/20/2023 17:24:35 Cough 11019740 R05.9 Community acquired pneumonia 222546625 J18.9 Health Concerns Section Related Observation LastModified by Organization Detai ls LastModified Time None Recorded Concern Status LastModified by Organization Details LastModified Time None Recorded Advance Directives Directive None Recorded Payers Insurance Date Sequence Insurance Name Policy Number Policy Stewart Covered Member ID Stewart Member ID Guarantor Name 05/11/2024 3 [facility] [facility] - [facility] [place] (MEDICARE REPLACEMENT/A DVANTAGE - HMO) Gina Stanton [id number] Gina Romy 05/11/2024 1 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 Gina Stanton [id number] Gina Hammondharme 10/25/2023 1 [place] [employer] Gina Stanton [id number] Gina Hammondharme 05/11/2024 2 [place] [facility] Gina Stanton [id number] Gina Romy Notes Date Note Type Note Provider Name and Address Organization Details Recorded Time 10/20/2023 text/html CoughReported by Patient cough for one weekchills and no feverPt has been taking tylenol and robitussinno relief, cough is productive, green colored SUBHA FLORENTINO NP [address] [place], [address], [place] - [facility] 10/20/2023 19:24:36 OBGyn Episode No OBEpisode recorded.
--- OUTSIDE RECORDS SUMMARY | 2025-05-11 14:16 | XMS_ITS | Clinical Summary ---
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 CHOLECYSTECTOMY PROCEDURE: [place] LAPAROSCOPY SURG CHOLECYSTECTOMY Medical History Medical History [...]
== END 2025-05-11 12:19 | disposition home or self-care (01) ==
LOC: HO.HMCC 11:52
PROVIDERS: PCP Internal Medicine; Visit Provider Internal Medicine
DX: M96.1 Postlaminectomy syndrome, not elsewhere classified (principal); M48.062 Spinal stenosis, lumbar region with neurogenic claudication; R52 Pain, unspecified

== ENCOUNTER → 2025-05-11 11:51 | Outpatient (BNVA) | payer OTHER, SELFPAY | PROVIDERS: PCP Internal Medicine; Visit Provider Internal Medicine | DX: M79.605 Pain in left leg (principal); M54.50 Low back pain, unspecified; R20.0 Anesthesia of skin; G89.29 Other chronic pain; M96.1 Postlaminectomy syndrome, not elsewhere classified; M48.062 Spinal stenosis, lumbar region with neurogenic claudication | CPT/HCPCS: 99212 ==